=== PATIENT | male | born 1970 | race Caucasian/White ===

== ENCOUNTER 2019-07-30 13:08 | Emergency (ER) | payer SELFPAY ==
[~2019-07-30] VITALS: Ht 167.6 cm; Wt 86.0 kg
[2019-07-30 15:27] VITALS: BP 150/73
== END 2019-07-30 15:28 | disposition home or self-care (01) ==
LOC: ER 13:08
DX: R04.0 Epistaxis (principal)
CPT/HCPCS: 99282

== ENCOUNTER 2019-08-03 01:00 | Emergency (ER) | payer SELFPAY ==
[~2019-08-03] VITALS: Ht 170.2 cm; Wt 89.0 kg
[2019-08-03] MEDS ORDERED: OXYMETAZOLINE HCL NASAL SPRAY 15ML BOTHNSTRLS SCH (02:30)
[2019-08-03 04:08] VITALS: BP 138/71
== END 2019-08-03 04:19 | disposition home or self-care (01) ==
LOC: ER 01:00
DX: R04.0 Epistaxis (principal); F17.210 Nicotine dependence, cigarettes, uncomplicated
CPT/HCPCS: 99283

== ENCOUNTER 2019-08-20 22:19 | Emergency (ER) | payer SELFPAY ==
[~2019-08-20] VITALS: Ht 172.7 cm; Wt 85.0 kg
[2019-08-21] MEDS ORDERED: OXYMETAZOLINE HCL NASAL SPRAY 15ML BOTHNSTRLS SCH
[2019-08-21 00:34] LABS: BASOPHILS % 0.7 % (0.0-2.0); HEMATOCRIT. 40.4 % (42.0-52.0); HEMOGLOBIN. 13.9 g/dL (14.0-18.0); LYMPHOCYTES % 23.3 % (20.0-50.0); MEAN CORPUSCULAR HEMOGLOBIN 32.4 pg (28.0-32.0); MEAN CORPUSCULAR VOLUME 94.4 fL (80.0-94.0); MEAN PLATELET VOLUME 9.4 fl (7.4-10.4); MONOCYTES % 8.1 % (2.0-8.0); NEUTROPHILS % 64.9 % (40.0-76.0); PLATELET 193 x1000/uL (130-400); RED BLOOD CELL COUNT 4.28 mill/uL (4.7-6.1); RED CELL DISTRIBUTION WIDTH 12.9 % (11.6-14.6)
[2019-08-21 00:41] LABS: INR 1.2; PROTHROMBIN TIME 11.9 sec (9.6-11.0)
[2019-08-21 01:39] VITALS: BP 127/76
== END 2019-08-21 01:44 | disposition home or self-care (01) ==
LOC: ER 22:19
DX: R04.0 Epistaxis (principal); R42 Dizziness and giddiness; R51 Headache
CPT/HCPCS: 36415; 99283